=== PATIENT | male | born 1960 | race Caucasian/White ===

== ENCOUNTER 2018-03-23 20:52 | Emergency (ER) | payer SELFPAY ==
[~2018-03-23] VITALS: Ht 167.6 cm; Wt 67.1 kg
--- NOTE | 2018-03-23 21:23 | PHYS DOC ---
Past History Past Medical History: Other Past Surgical History: Other Alcohol Use: Heavy Drug Use: None Adult General Chief Complaint Chief Complaint: MECHANICAL FALL HPI HPI 58-year-old male presents via EMS for fall at home. Patient is intoxicated with alcohol. He states that he tripped and fell in his living room. He hit his head on his intake on the way down. He denies loss of consciousness. The patient was in a cervical collar when he arrived. Patient states that he has only had one 24 ounce beer today. His family who accompanies him states he has had much more than that. Patient complains of back pain but he tells me that it is chronic as been that way since 2001. He denies any new acute complaints except for the small hematoma on his forehead from falling. He denies fever or chills. Review of Systems Review of Systems Constitutional: Denies fever or chills [] Eyes: Denies change in visual acuity, redness, or eye pain [] HENT: Denies nasal congestion or sore throat [] Respiratory: Denies cough or shortness of breath [] Cardiovascular: No additional information not addressed in HPI [] GI: Denies abdominal pain, nausea, vomiting, bloody stools or diarrhea [] : Denies dysuria or hematuria [] Musculoskeletal: Back pain and neck pain [] Integument: Denies rash or skin lesions [] Neurologic: Denies headache, focal weakness or sensory changes [] Endocrine: Denies polyuria or polydipsia [] All other systems were reviewed and found to be within normal limits, except as documented in this note. Current Medications Current Medications Current Medications Medications (Trade) Dose Ordered Sig/[facility] Start Time Stop Time Status Last Admin Dose Admin Multivitamins/ Minerals 10 ml/ Folic Acid 1 mg/ Thiamine HCl 100 mg/Sodium Chloride 1,011.1 ml @ 1,000 mls/ hr 1X ONCE 03/23/18 21:30 03/23/18 22:30 Allergies Allergies Allergies Coded Allergies Type Severity Reaction Last Updated Verified Penicillins Allergy Intermediate ELEVATED TEMP A BABY 103 TO 104 01/21/14 Yes Physical Exam Physical Exam Constitutional: Well developed, well nourished, no acute distress, intoxicated. [] HENT: Normocephalic, small abrasion and hematoma of the forehead, bilateral external ears normal, oropharynx moist, no oral exudates, nose normal. [] Eyes: PERRLA, EOMI, conjunctiva normal, no discharge. [] Neck: Normal range of motion, paraspinal muscle tenderness, supple, no stridor. [] Cardiovascular:Heart rate regular rhythm, no murmur [] Lungs & Thorax: Bilateral breath sounds clear to auscultation [] Abdomen: Bowel sounds normal, soft, no tenderness, no masses, no pulsatile masses. [] Skin: Warm, dry, no erythema, no rash. [] Back: No tenderness, no CVA tenderness. [] Extremities: No tenderness, no cyanosis, no clubbing, ROM intact, no edema. [] Neurologic: Alert and oriented X 3, normal motor function, normal sensory function, no focal deficits noted. Slurred speech[] Psychologic: Affect normal, judgement impaired, mood normal. [] EKG EKG [] Radiology/Procedures Radiology/Procedures [] Impressions: INDICATION: FALL TONIGHT COMPARISON: None. TECHNIQUE: Axial CT images obtained through the head and cervical spine. One or more of the following individualized dose reduction techniques were utilized for this examination: 1. Automated exposure control; 2. Adjustment of the mA and/or kV according to patient size; 3. Use of iterative reconstruction technique. FINDINGS: Head: No midline shift. Diffuse prominence of ventricles and sulci. Scattered low density within the white matter. No definite acute intracranial hemorrhage. Small fluid in maxillary sinuses. 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 For example on the left anteriorly one of these regions of destruction measures approximately 23 x 13 mm with some fluid and air within the area which could be seen with periapical abscess formation. This is also seen on the right. Degenerative changes throughout the cervical spine without definite acute fracture or dislocation. Mild retrolisthesis of C4 on 5. Multilevel central canal and neural foraminal stenosis. There is bullous disease at the lung apices. IMPRESSION: 1. No acute intracranial hemorrhage. 2. Degenerative changes of cervical spine without definite acute fracture. 3. 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 Some of these regions of lucency and air extend into the adjacent soft tissues therefore would correlate with symptoms in the region to ensure that this odontogenic disease does not have adjacent soft tissue abscess formation adjacent to the maxillary sinus bilaterally. 4. Scattered low density within the white matter. Nonspecific but can be seen with small vessel ischemic disease. Electronically signed by: Felice Leong MD (03/23/2018 9:36 PM) [facility] DICTATED AND SIGNED BY: FELICE LEONG MD DATE: 03/23/182120 CC: MAYA GONZALEZ DO Course & Med Decision Making Course & Med Decision Making Pertinent Labs and Imaging studies reviewed. (See chart for details) The patient's head and cervical spine CT are negative for acute findings. Head CT did show extensive erosion of the apices of his teeth with likely periapical abscess. I will place the patient on clindamycin 600 mg 3 times a day for a week. I stressed to him and his family that he must see a dentist and have his toe with as soon as possible. The patient's labs are unremarkable except for some slight anomalies in his CMP. See the chart for details. After getting the patient his banana bag, he was able to stand and walk under his own power. His family has arrived to help him get home and take care of him. I believe this is a reasonable plan. He is stable for discharge at this time. [] Dragon Disclaimer Dragon Disclaimer This electronic medical record was generated, in whole or in part, using a voice recognition dictation system. Departure Departure: Scripts Clindamycin Hcl (CLINDAMYCIN HCL) 300 Mg Capsule 2 CAP PO TID for dental infection for 7 Days, #42 CAP Prov: MAYA GONZALEZ DO 03/23/18 MAYA GONZALEZ DO Mar 23, 2018 21:23
--- NOTE | 2018-03-23 21:40 | RAD ---
INDICATION: FALL TONIGHT COMPARISON: None. TECHNIQUE: Axial CT images obtained through the head and cervical spine. One or more of the following individualized dose reduction techniques were utilized for this examination: 1. Automated exposure control; 2. Adjustment of the mA and/or kV according to patient size; 3. Use of iterative reconstruction technique. FINDINGS: Head: No midline shift. Diffuse prominence of ventricles and sulci. Scattered low density within the white matter. No definite acute intracranial hemorrhage. Small fluid in maxillary sinuses. 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 For example on the left anteriorly one of these regions of destruction measures approximately 23 x 13 mm with some fluid and air within the area which could be seen with periapical abscess formation. This is also seen on the right. Degenerative changes throughout the cervical spine without definite acute fracture or dislocation. Mild retrolisthesis of C4 on 5. Multilevel central canal and neural foraminal stenosis. There is bullous disease at the lung apices. IMPRESSION: 1. No acute intracranial hemorrhage. 2. Degenerative changes of cervical spine without definite acute fracture. 3. 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 Some of these regions of lucency and air extend into the adjacent soft tissues therefore would correlate with symptoms in the region to ensure that this odontogenic disease does not have adjacent soft tissue abscess formation adjacent to the maxillary sinus bilaterally. 4. Scattered low density within the white matter. Nonspecific but can be seen with small vessel ischemic disease. Electronically signed by: Fran Leong MD (03/23/2018 9:36 PM) [facility]
[2018-03-23] MEDS ORDERED: THIAMINE 200 MG/2 ML VIAL. IV ONE (21:42)
[2018-03-23] MEDS ORDERED: MVI, ADULT NO.4 WITH VIT K 10 ML VIAL IV ONE (21:43)
[2018-03-23] MEDS ORDERED: FOLIC ACID 5 MG/ML SYRINGE for ER IV ONE (21:43)
[2018-03-23 21:56] LABS: BASO # 0.1 x10^3/uL (0.0-0.2); BASO % 1 % (0-3); EOS # 0.1 x10^3/uL (0.0-0.7); EOS % 1 % (0-3); HEMATOCRIT 42.7 % (39.0-53.0); HEMOGLOBIN 14.7 g/dL (13.0-17.5); LYMPH # 2.1 x10^3/uL (1.0-4.8); LYMPH % 26 % (24-48); MEAN CORPUSCULAR HEMOGLOBIN 35 pg (25-35); MEAN CORPUSCULAR HGB CONC 35 g/dL (31-37); MEAN CORPUSCULAR VOLUME 101 fL (79-100); MONO # 0.4 x10^3/uL (0.0-1.1); MONO % 5 % (0-9); NEUT # 5.5 x10^3uL (1.8-7.7); NEUT % 67 % (31-73); PLATELET COUNT 166 x10^3/uL (140-400); RED BLOOD COUNT 4.23 x10^6/uL (4.30-5.70); RED CELL DISTRIBUTION WIDTH 14.1 % (11.5-14.5); WHITE BLOOD COUNT 8.2 x10^3/uL (4.0-11.0)
[2018-03-23] MEDS: MVI, ADULT NO.4 WITH VIT K 10 ML, FOLIC ACID SYRINGE for ER 1 MG, THIAMINE INJ 100 MG i... IV ONE ×4 (21:58)
[2018-03-23 22:09] LABS: ALBUMIN 3.4 g/dL (3.4-5.0); CALCIUM 8.4 mg/dL (8.5-10.1); CREATININE 0.8 mg/dL (0.7-1.3); GFR 99.6; POTASSIUM 3.5 mmol/L (3.5-5.1); TOTAL BILIRUBIN 1.7 mg/dL (0.2-1.0); TOTAL PROTEIN 6.9 g/dL (6.4-8.2)
[2018-03-23] MEDS ORDERED: CLIN300C8 PO (22:19)
[2018-03-23] MEDS: CLINDAMYCIN HCL 150 MG CAPSULE PO ONE (22:37)
[2018-03-23 23:30] VITALS: BP 144/72
== END 2018-03-23 23:30 | disposition home or self-care (01) ==
LOC: ER 20:52
DX: S00.83XA Contusion of other part of head, initial encounter (principal); K03.2 Erosion of teeth; F10.229 Alcohol dependence with intoxication, unspecified; M54.89 Other dorsalgia; M54.2 Cervicalgia; Z88.0 Allergy status to penicillin; Y90.9 Presence of alcohol in blood, level not specified; W01.198A Fall on same level from slipping, tripping and stumbling with subsequent striking against other object, initial encounter; Y93.89 Activity, other specified; Y92.098 Other place in other non-institutional residence as the place of occurrence of the external cause; Y99.8 Other external cause status
CPT/HCPCS: 36415; 70450; 72125; 80053; 85025; 96365; 99284-25; J7030